=== PATIENT | male | born 1965 | race Caucasian/White ===

== ENCOUNTER 2017-12-06 11:30 | Day surgery (SDC) | payer OTHER ==
--- NOTE | 2017-12-06 14:38 | GI Report ---
REFERRING PHYSICIAN: Dr. Trudi Borrego RECORDS TECHNICIAN: Enrike Palacios MD PROCEDURE MEDICATION: Propofol as per anesthesia. INDICATIONS: This 52-year-old man is referred for a screening. He does have a positive family history with several uncles with colon cancer. He denies change in bowel habits or bleeding. PROCEDURE PERFORMED: Screening colonoscopy. PROCEDURE: An Olympus video colonoscope was advanced in the rectum and slowly advanced to the cecum. The appendiceal orifice and terminal ileum were normal. On slow withdrawal, the cecum, ascending colon, and transverse colon with some redundancy but no obvious intraluminal lesions noted. The descending colon with no obvious intraluminal lesions noted. In the sigmoid colon between 35 and 40 cm, two polyps were removed. The larger one was about 0.5 cm in size removed with a hot snare. The smaller one removed with a cold snare. At 15 cm near the rectosigmoid junction, there was a 3 to 4 mm sessile polyp removed with electrocautery. Retroflexion of the rectum was normal. Patient tolerated the procedure well. FINDINGS: Three polyps removed between 15 and 40 cm. RECOMMENDATIONS: 1. A high-fiber diet. 2. Consider re-looking at his colon in 5 years with the pathology of the polyps pending. cc: Dr. Trudi MATHEWS
== END 2017-12-06 11:32 ==
LOC: OPSURG 11:30
PROVIDERS: ATTEND Internal Medicine Gastroenterology
DX: Z12.11 Encounter for screening for malignant neoplasm of colon (principal); K63.5 Polyp of colon; D12.5 Benign neoplasm of sigmoid colon
CPT/HCPCS: J2001; J2704; J7120; 45385; S1016